=== PATIENT | female | born 1985 | race Caucasian/White ===

== ENCOUNTER 2017-07-17 18:27 | Emergency (ER) | payer OTHER ==
[~2017-07-17] VITALS: Ht 162.6 cm; Wt 56.7 kg
[2017-07-17 18:55] VITALS: BP 117/86
[2017-07-17] MEDS ORDERED: HEPARIN-LOCK FLUSH PORCINE PF 10 UNITS/1 ML (10 ML)DISP.SYRIN IV ONE (19:30)
== END 2017-07-17 19:53 | disposition home or self-care (01) ==
LOC: ER 18:39
DX: Z45.2 Encounter for adjustment and management of vascular access device (principal); Z85.3 Personal history of malignant neoplasm of breast; Z88.0 Allergy status to penicillin; Z88.2 Allergy status to sulfonamides; Z90.12 Acquired absence of left breast and nipple
CPT/HCPCS: 99284; A4606; J1642; Z7610

== ENCOUNTER 2018-10-31 17:43 | Emergency (ER) | payer OTHER ==
[~2018-10-31] VITALS: Ht 162.6 cm; Wt 59.0 kg
[2018-10-31 17:52] VITALS: BP 125/87
== END 2018-10-31 18:30 | disposition home or self-care (01) ==
LOC: ER 17:46
DX: L03.116 Cellulitis of left lower limb (principal); L03.115 Cellulitis of right lower limb; S90.562A Insect bite (nonvenomous), left ankle, initial encounter; S90.561A Insect bite (nonvenomous), right ankle, initial encounter; Z85.3 Personal history of malignant neoplasm of breast; Z90.12 Acquired absence of left breast and nipple; Z88.0 Allergy status to penicillin; Z88.2 Allergy status to sulfonamides; Z98.890 Other specified postprocedural states; W57.XXXA Bitten or stung by nonvenomous insect and other nonvenomous arthropods, initial encounter; Y93.89 Activity, other specified; Y92.89 Other specified places as the place of occurrence of the external cause; Y99.8 Other external cause status

== ENCOUNTER 2018-12-18 12:00 | Emergency (ER) | payer OTHER ==
[~2018-12-18] VITALS: Ht 160 cm; Wt 64.9 kg
[2018-12-18 12:20] VITALS: BP 140/106
== END 2018-12-18 13:50 | disposition home or self-care (01) ==
LOC: ER 12:00
DX: J06.9 Acute upper respiratory infection, unspecified (principal); Z85.3 Personal history of malignant neoplasm of breast; Z90.12 Acquired absence of left breast and nipple; Z98.890 Other specified postprocedural states; Z88.0 Allergy status to penicillin; Z88.2 Allergy status to sulfonamides
CPT/HCPCS: 71045-TC